=== PATIENT | male | born 1970 | race Caucasian/White ===

== ENCOUNTER 2018-02-10 02:17 | Inpatient (IN) | payer OTHER ==
[2018-02-10] MEDS ORDERED: HEPARIN SODIUM,PORCINE 5,000 UNIT/ML 1 ML VIAL IV STA (02:30)
[2018-02-10 02:31] LABS: Basophils # (A) 0.1 k/uL (0-0.2); Basophils % (A) 1 %; Eosinophils # (A) 0.3 k/uL (0-0.7); Eosinophils % (A) 2 %; HCT 38.6 % (39.0-53.0); HGB 12.5 gm/dL (13.0-17.5); Lymphocytes # (A) 4.8 k/uL (1.0-4.8); Lymphocytes % (A) 30 %; MCH 28.8 pg (25.0-35.0); MCHC 32.3 g/dL (31.0-37.0); MCV 89.2 fL (80.0-100.0); Mean Platelet Volume 7.9; Monocytes # (A) 1.2 k/uL (0-1.0); Monocytes % (A) 8 %; Neutrophils # (A) 9.4 k/uL (1.3-7.7); Neutrophils % (A) 59 %; Platelet Count 280 k/uL (150-450); RBC 4.33 m/uL (4.30-5.90); RDW 14.2 % (11.5-15.5)
[2018-02-10] MEDS ORDERED: SODIUM CHLORIDE 0.9% 1,000 ML IV ONE (02:32)
[2018-02-10] MEDS ORDERED: MORPHINE SULFATE 2 MG/ML SYRINGE IVP STA (02:32)
[2018-02-10 02:34] LABS: Glucose,Whole Blood 172 mg/dL (75-99)
--- NOTE | 2018-02-10 02:34 | XR ---
EXAMINATION TYPE: XR chest 1V portable DATE OF EXAM: 02/10/2018 COMPARISON: NONE HISTORY: Heart attack chest pain TECHNIQUE: Single frontal view of the chest is obtained. FINDINGS: There is some coarse interstitial density at the left lung base. There is no gross heart f ailure. There are chest leads. Mediastinum is normal. There is slight blunting of left costophrenic a ngle. IMPRESSION: There is mild pleural reaction and atelectasis at the left lung base. No gross heart akshat lure.
--- NOTE | 2018-02-10 02:36 | ED ---
Chest Pain HPI - General Stated Complaint: Chest Pain Time Seen by Provider: 02/10/18 02:22 - History of Present Illness Initial Comments: ORIF 7 years old male, brought in by EMS presented with a chest pain about on a half ago he threw up multiple times she is quite diaphoretic having a shortness of breath he had some alcohol on today he is camping in the area has no history of heart disease in the past denies any hypertension or diabetes history as well EKG was transferred by the EMS crew through as EKG was reviewed, EKG is consistent with a STEMI in inferior and lateral leads age he was repeated in the ER it confirms the infiltrate in the lateral leads STEMI he is short-winded - Related Data Allergies Allergy/AdvReac Type Severity Reaction Status Date / Time tetracycline Allergy Rash/Hives Verified 02/10/18 02:28 Review of Systems ROS Statement: Those systems with pertinent positive or pertinent negative responses have been documented in the HPI. ROS Other: All systems not noted in ROS Statement are negative. EKG Findings - EKG Comments: EKG Findings:: EKG is a sinus tachycardia ventricular rate is 107 NE interval is 132 QRS duration is 68 QT/QTC 312/416 review of this EKG reveals some ST elevation in lead 1 and lead to and aVL also noticed ST elevation in lead V4 V5 and V6 General Exam - General Exam Comments Initial Comments: General: The patient is awake and alert, in severe distress him a Skin: Skin is warm and dry and no rashes or lesions are noted. Eye: Pupils are equal, round and reactive to light, extra-ocular movements are intact; there is normal conjunctiva bilaterally. Ears, nose, mouth and throat: There are moist mucous membranes and no oral lesions. Neck: The neck is supple, there is no tenderness or JVD. Cardiovascular: There is a regular rate and rhythm. No murmur, rub or gallop is appreciated. Respiratory: To auscultation bilateral, Gastrointestinal: Soft, non-distended, non-tender abdomen without masses or organomegaly noted. There is no rebound or guarding present. Bowel sounds are unremarkable. Back: There is no tenderness to palpation in the midline. There is no obvious deformity. Musculoskeletal: Normal ROM, no tenderness, There is no pedal edema. There is no calf tenderness or swelling. No cords were appreciated. Neurological: CN II-XII intact, Cranial nerves III through XII are intact. There are no obvious motor or sensory deficits. Coordination appears grossly intact. Speech is normal. Psychiatric: Cooperative, appropriate mood & affect, normal judgment. Course Vital Signs 02/10/18 02/10/18 02/10/18 02:22 02:35 02:41 Temperature 97.0 F L 97.2 F L Pulse Rate 113 H 107 H 100 Respiratory 20 22 22 Rate Blood Pressure 88/58 119/69 107/66 O2 Sat by Pulse 100 95 95 Oximetry Critical Care Time Total Critical Care Time: 30 Critical Care Time: Patient's EKG was reviewed prior to his arrival EKG was consistent with a STEMI spoke with the gamer application architect manager he recommended we speak with the Dr. Duong Watters was giving a heads-up code STEMI was activated Butadiene Compressor Operator was activated patient had down fluids as well as IV heparin he did this he did drop his blood pressure to 80 systolic the spell we held back the morphine and nitro at this point patient left the ER in a stable condition now for the Butadiene Compressor Operator patient be admitted to Dr. Vito martinez [facility] hospitalist group and obviously Dr. Weir can be a consult. Disposition Clinical Impression: STEMI (ST elevation myocardial infarction), Hypotension Disposition: ADMITTED IP TO THIS HOSP Condition: Good
[2018-02-10 02:42] LABS: ALT 32 U/L (21-72); AST 20 U/L (17-59); Albumin 4.2 g/dL (3.5-5.0); Alkaline Phosphatase 82 U/L (38-126); Anion Gap 14 mmol/L; Blood Urea Nitrogen 16 mg/dL (9-20); Calcium 9.7 mg/dL (8.4-10.2); Carbon Dioxide 24 mmol/L (22-30); Chloride 101 mmol/L (98-107); Glucose 188 mg/dL (74-99); Potassium 4.2 mmol/L (3.5-5.1); Sodium 139 mmol/L (137-145); Total Bilirubin 0.3 mg/dL (0.2-1.3); Total Protein 6.9 g/dL (6.3-8.2)
[2018-02-10] MEDS ORDERED: ONDANSETRON 4 MG/2 ML VIAL ONE (02:53)
[2018-02-10] MEDS ORDERED: LIDOCAINE 1% INJ 10MG/ML (20 ML MDV) ONE (02:53)
[2018-02-10] MEDS ORDERED: MIDAZOLAM 2 MG/2 ML VIAL ONE (02:53)
[2018-02-10] MEDS ORDERED: LIDOCAINE 1% INJ 10MG/ML (20 ML MDV) SQ ONE (02:58)
[2018-02-10] MEDS ORDERED: SODIUM CHLORIDE 0.9% 500 ML IV ONE (03:02)
[2018-02-10] MEDS ORDERED: IV FLUID CONTINUATION 200 ML IV ONE (03:02)
[2018-02-10] MEDS ORDERED: NOREPINEPHRIN 4 MG-0.9% NS PMX 4 MG/250 ML ML IV ONE (03:03)
[2018-02-10] MEDS ORDERED: NITROGLYCERIN SL TABS 0.4 MG TAB SUBLINGUAL PRN (03:04)
[2018-02-10] MEDS ORDERED: MORPHINE SULFATE 4 MG/ML SYRINGE ONE (03:21)
[2018-02-10] MEDS ORDERED: IOPAMIDOL-370 50ML BTL INJ ONE (03:22)
[2018-02-10] MEDS ORDERED: MORPHINE SULFATE 4 MG/ML SYRINGE IVP ONE (03:22)
[2018-02-10] MEDS ORDERED: IOPAMIDOL-370 125ML BTL INJ ONE (03:23)
[2018-02-10] MEDS ORDERED: HEPARIN SODIUM,PORCINE/D5W PMX 25,000 UNIT in DEXTROSE/WATER 1 500ML.BAG IV ONE (03:30)
[2018-02-10] MEDS ORDERED: RX INFO: IV CONTRAST WAS GIVEN 1 EACH MISC MISCELLANE PRN (03:33)
--- NOTE | 2018-02-10 03:44 | P.CRDCN ---
History of Present Illness Consult date: 02/10/18 Chief complaint: chest pain History of present illness: This is a 47-year-old gentleman with past medical history significant for dyslipidemia presented to the emergency room complaining of chest discomfort. The patient stated that he was in his usual state of health until about 3 days ago when he started experiencing chest discomfort as sharp kind of discomfort in the middle of the chest and he states clearly worse once he take a deep breath. The chest discomfort wasn't associated with shortness of breath as well as a sweating. I was informed from the emergency room that the patient does have an acute inferior ST elevation myocardial infarction on his EKG. Because of that he underwent an emergent heart catheterization but that revealed normal coronaries with normal aortic root angiographically and without any evidence of dissection and also with normal LV function without any clear- cut wall motion abnormalities on the LV gram. Reviewing the EKG after owusu did show sinus rhythm without clear-cut ST segment elevation consistent with STEMI. There was possibly an early repolarization. During the procedure the patient pressure dropped down significantly to about 60 mmHg and I had to start the patient on vasopressors. Because of the chest discomfort was pleuritic my concern was possible PE. The patient was not tachycardic and the oxygen saturation was within normal limits and was about 95%. Computed tomography scan of the chest with contrast is a scheduled and the patient is in process to have it done to rule out a PE. Also stat echocardiogram will be performed to rule out any pericarditis/pericardial effusion/tamponade. d-dimer was added to the previous blood work and we don't have the results at this point. Meanwhile I will continue supporting her blood pressure was vasopressors. In terms of past medical history the patient does have dyslipidemia. No history of smoking or alcohol abuse. No significant family history of premature CAD. His father does have diabetes. Past Medical History History of Any Multi-Drug Resistant Organisms: None Reported Past Surgical History: No Surgical Hx Reported Past Psychological History: No Psychological Hx Reported Smoking Status: Never smoker Past Alcohol Use History: Occasional Past Drug Use History: None Reported Medications and Allergies Allergies Allergy/AdvReac Type Severity Reaction Status Date / Time tetracycline Allergy Rash/Hives Verified 02/10/18 02:28 Physical Exam Vitals: Vital Signs Temp Pulse Resp BP Pulse Ox 02/10/18 02:41 97.2 F L 100 22 107/66 95 02/10/18 02:35 107 H 22 119/69 95 02/10/18 02:22 97.0 F L 113 H 20 88/58 100 Intake and Output 02/09/18 02/09/18 02/10/18 14:59 22:59 06:59 Intake Total 2 Balance 2 Intake: IV 2 Other: Weight 98.1 kg - Constitutional General appearance: mild distress - Respiratory Respiratory: bilateral: CTA - Cardiovascular Rhythm: regular Heart sounds: normal: S1, S2 Results 02/10/18 02:21 02/10/18 02:21 Cardiac Enzymes 02/10/18 02/10/18 Range/Units 02:21 02:21 AST 20 (17-59) U/L Troponin I <0.012 (0.000-0.034) ng/mL Coagulation 02/10/18 Range/Units 02:21 PT 10.0 (9.0-12.0) sec APTT 21.0 L (22.0-30.0) sec CBC 02/10/18 Range/Units 02:21 WBC 16.0 H (3.8-10.6) k/uL RBC 4.33 (4.30-5.90) m/uL Hgb 12.5 L (13.0-17.5) gm/dL Hct 38.6 L (39.0-53.0) % Plt Count 280 (150-450) k/uL Comprehensive Metabolic Panel 02/10/18 Range/Units 02:21 Sodium 139 (137-145) mmol/L Potassium 4.2 (3.5-5.1) mmol/L Chloride 101 (98-107) mmol/L Carbon Dioxide 24 (22-30) mmol/L BUN 16 (9-20) mg/dL Creatinine 1.10 (0.66-1.25) mg/dL Glucose 188 H (74-99) mg/dL Calcium 9.7 (8.4-10.2) mg/dL AST 20 (17-59) U/L ALT 32 (21-72) U/L Alkaline Phosphatase 82 (38-126) U/L Total Protein 6.9 (6.3-8.2) g/dL Albumin 4.2 (3.5-5.0) g/dL Current Medications Generic Name Dose Route Start Last Admin Trade Name Freq PRN Reason Stop Dose Admin Aspirin 325 mg 02/11/18 09:00 Aspirin PO DAILY KAYCEE Sodium Chloride 1,000 mls @ 100 mls/hr 02/10/18 03:15 Saline 0.9% IV .Q10H KAYCEE Sodium Chloride 1,000 mls @ 100 mls/hr 02/10/18 03:45 Saline 0.9% IV 02/10/18 09:46 .Q10H KAYCEE Miscellaneous Information 1 each 02/10/18 03:33 Rx Info: Iv Contrast Was Given MISCELLANE 02/12/18 03:33 DAILY PRN Per Protocol Nitroglycerin 0.4 mg 02/10/18 03:04 Nitrostat SUBLINGUAL Q5M PRN Chest Pain Intake and Output 02/09/18 02/09/18 02/10/18 14:59 22:59 06:59 Intake Total 2 Balance 2 Intake: IV 2 Other: Weight 98.1 kg Patient Weight 02/10/18 06:59 Weight 98.1 kg 02/10/18 02:21 02/10/18 02:21 Assessment and Plan Assessment: assessment #1 pleuritic chest discomfort. #2 hypotension require vasopressor #3 dyslipidemia Plan #1 the patient currently is on vasopressor We'll continue supporting the blood pressure. #2 he is in process of having CTA to rule out a PE. d-dimer was added to the previous blood work. #3 he is in process to have an echocardiogram was Doppler as well to assess for pericardial effusion/tamponade #4 heparin was already initiated. #5 further recommendation to follow the results of the computed tomography scan. Thank you for allowing us participate in his care and we will continue following up with the patient.
[2018-02-10] MEDS ORDERED: SODIUM CHLORIDE 0.9% 1,000 ML IV SCH (03:45)
--- NOTE | 2018-02-10 04:16 | CT ---
EXAMINATION TYPE: CT angio chest DATE OF EXAM: 02/10/2018 4:10 AM COMPARISON: NONE HISTORY: ESTEFANY, R/O pe CT DLP: 595 mGycm Automated exposure control for dose reduction was used. CONTRAST: CTA scan of the thorax is performed with IV Contrast, patient injected with 100 mL of Isovue 370, pul monary embolism protocol. There are 3-D post processed images.. FINDINGS: There is coarse subpleural interstitial density in the lungs. There is mild coalescent infiltrate at the posterior lung bases. There is moderate pericardial effusion. This measures up to 12 mm in thickn ess. Thoracic aorta appears normal. There is no evidence of aneurysm or dissection. I see no filling defec ts in the pulmonary arteries. There are numerous mediastinal lymph nodes that measure up to 1 cm. The re are no hilar masses. The bony thorax is intact. IMPRESSION: NO EVIDENCE OF PULMONARY EMBOLISM. MODERATE PERICARDIAL EFFUSION. PATCHY INFILTRATES AND ATELECTASIS AT THE LUNG BASES. THERE ARE PARATRACHEAL LYMPH NODES OF UNCERTAIN SIGNIFICANCE.
[2018-02-10 04:19] LABS: Glucose,Whole Blood 180 mg/dL (75-99)
[2018-02-10] MEDS ORDERED: ONDANSETRON 4 MG/2 ML VIAL IVP PRN (04:42)
[2018-02-10 04:47] VITALS: BMI 31.5
[2018-02-10] MEDS: SODIUM CHLORIDE 0.9% 1,000 ML IV SCH ×3 (04:58→21:54)
[2018-02-10 06:24] LABS: Creatine Kinase 49 U/L (55-170)
--- NOTE | 2018-02-10 06:31 | CC ---
CARDIAC CATHETERIZATION REPORT DATE OF SERVICE: February 10, 2018 PERFORMING PHYSICIAN: Dillon Watters MD, taproom attendant. PROCEDURE PERFORMED: 1. Selective right and left coronary angiogram. 2. Left heart catheterization. 3. Left ventriculography. 4. An aortic root angiogram. INDICATION: This is a pleasant 47-year-old gentleman who presented to the emergency room with chest discomfort and the EKG showed findings questionable for acute non acute ST-segment elevation FL. Because of that an emergent heart catheterization was advised. APPROACH: Right common femoral artery. COMPLICATION: None. LEVEL OF SEDATION: Moderate. Sedation length of 35 minutes. PROCEDURE DESCRIPTION: After obtaining an informed consent, the patient was brought to cardiac laborer plumbing. The right common femoral artery was cannulated using micropuncture technique, the micropuncture wire passed easily then I placed a 6-Faroese sheath in the right common femoral artery. After that, I did selective right and left coronary angiogram using JR4 and JL3.5 catheters. Left heart catheterization, left ventriculography, and aortic root angiogram were performed using a 6-Faroese pigtail catheter. The procedure was completed without any complication. CORONARY ANGIOGRAM: 1. The RCA is a large caliber vessel and it is a dominant vessel. It is angiographically normal. It bifurcates distally into PDA and PLV branches, both are angiographically normal. 2. The left main is angiographically normal. It bifurcates into the left circumflex, ramus intermedius, and left anterior descending artery. 3. The left circumflex is a large caliber vessel and is a nondominant vessel. The left circumflex itself is angiographically normal and in the midportion gives rise into a large OM branch which seems to be angiographically normal. 4. The ramus intermedius is angiographically normal. 5. The LAD: The LAD system is angiographically normal in the proximal, mid and distal portion. In the midportion gives rise into a large diagonal branch which seems to be angiographically normal. HEMODYNAMICS: The left ventricular end-diastolic pressure was 20 mmHg and no gradient was identified across the aortic valve. Left ventriculography was performed in the SINCLAIR projection and using a power injection and the left ventricular systolic function seems to be normal with EF about 50% without any clear-cut evidence of wall motion abnormalities consistent with ischemia. AORTIC ROOT ANGIOGRAM: The aortic root angiogram was performed in the TURKMEN projection and using a power injection and the aortic root appeared to be angiographically normal without any evidence of dissection. CONCLUSION: 1. Normal coronary angiogram. 2. Elevated left ventricular end-diastolic pressure. 3. Normal left ventricular systolic function. 4. Normal aortic root and normal thoracic aorta as well. POSTPROCEDURE MANAGEMENT: 1. Start the patient on heparin IV for possible PE. 2. Add D-dimer to the previous blood work from earlier today. 3. CT scan of the chest as well. 4. Blood pressure support using vasopressors. 5. STAT echocardiogram. 6. Follow up with the patient. MMODL / IJN: [id number] /
[2018-02-10 06:34] LABS: Creatine Kinase MB <0.2 ng/mL (0.0-2.4)
--- NOTE | 2018-02-10 06:58 | P.HPIM ---
History of Present Illness H&P Date: 02/10/18 Chief Complaint: chest pain and trouble breathing of one day duration 47-year-old male with history of hyperlipidemia he is at his baseline status of health he was camping today when all of a sudden felt sudden sharp chest pain he described it as sharp knifelike 10 out of 10 in severity disabling pain every time he tries take of breath or move has clear pleuritic characteristics pain was not resolving for which he decided to call EMS pain started around noontime on Sunday while patient was camping. He never experienced such pain before. This was associated with nausea and vomiting heart tracing and diaphoresis. Code STEMI was activated as initial EKG suggested some ST segment elevations patient had left heart cath done showed no significant coronary artery disease, no aortic root dilatation, and LV function within normal limits. Patient then received CT angiogram of the chest due to elevated d- dimer and persistent pleuritic chest pain however that was negative for acute PE. Patient then was admitted to the ICU post left heart catheter diagnosis of acute pericarditis and was started on colchicine and NSAIDs. Patient does recall recent upper respiratory infection where he had the prolonged whooping cough around once a month ago but he did not seek medical advice at that time. Patient otherwise denies any headache trouble with hearing changes in his vision he denies any abdominal pain changes in his bowel habits or urinary habits, patient denies any focal neurologic deficits denies any GI bleeding. He feels that he is at his baseline status of health and have no current concerns other than above Review of Systems Pertinent positives as noted in HPI. All other systems were reviewed and are negative Past Medical History Past Medical History: Hyperlipidemia History of Any Multi-Drug Resistant Organisms: None Reported Past Surgical History: No Surgical Hx Reported Past Anesthesia/Blood Transfusion Reactions: No Reported Reaction Past Psychological History: No Psychological Hx Reported Smoking Status: Never smoker Past Alcohol Use History: Occasional Past Drug Use History: None Reported - Past Family History Father Family Medical History: Diabetes Mellitus Medications and Allergies Allergies Allergy/AdvReac Type Severity Reaction Status Date / Time tetracycline Allergy Rash/Hives Verified 02/10/18 02:28 Physical Exam Vitals: Vital Signs Temp Pulse Resp BP Pulse Ox 02/10/18 05:18 16 100 02/10/18 05:00 91 20 119/72 99 02/10/18 04:50 88 18 116/76 99 02/10/18 04:40 91 15 124/91 98 02/10/18 04:03 18 100 02/10/18 02:41 97.2 F L 100 22 107/66 95 02/10/18 02:35 107 H 22 119/69 95 02/10/18 02:22 97.0 F L 113 H 20 88/58 100 Intake and Output 02/09/18 02/09/18 02/10/18 14:59 22:59 06:59 Intake Total 302 Output Total 0 Balance 302 Intake: IV 302 Sodium Chloride 0.9% 1, 100 000 ml @ 100 mls/hr IV . Q10H [facility] Rx#:[id number] Output: Urine 0 Other: Weight 94 kg Constitutional: Patient still experiencing a lot of pain, he cannot complete full sentences and he has to stop to catch his breath otherwise very cooperative Eyes: Anicteric sclerae, moist conjunctiva, no lid-lag Pupils equal round reactive to light ENMT: NC/AT Oropharynx clear, no erythema, or exudates Neck: Supple, FROM, no masses, or JVD No carotid bruits No thyromegaly Lungs: Clear to auscultation Clear to percussion Normal respiratory effort, no accessory muscle use Cardiovascular: Heart regular in rate and rhythm, No murmurs, gallops, or rubs No peripheral edema Abdominal: Soft Nontender, no guarding, rebound or rigidity Abdomen moving with respiration Normoactive bowel sounds No hepatomegaly, No splenomegaly No palpable mass No abdominal wall hernia noted Skin: Normal temperature, tone, texture, turgor No induration No subcutaneous nodules No rash, lesions No ulcers Extremities: No digital cyanosis No clubbing Pedal pulses intact and symmetrical Radial pulses intact and symmetrical No calf tenderness Psychiatric: Alert and oriented to person, place and time Appropriate affect fair judgment Neuro Muscles Strength 5/5 in all 4 extremities Sensation to light touch grossly present throughout Cranial nerves II-XII grossly intact No focal sensory deficits Lymphatics: no palpable cervical or supraclavicular , or inguinal lymph nodes Results CBC & Chem 7: 02/10/18 02:21 02/10/18 02:21 Labs: Abnormal Lab Results - Last 24 Hours (Table) 02/10/18 02/10/18 02/10/18 Range/Units 02:21 02:21 02:21 WBC 16.0 H (3.8-10.6) k/uL Hgb 12.5 L (13.0-17.5) gm/dL Hct 38.6 L (39.0-53.0) % Neutrophils # 9.4 H (1.3-7.7) k/uL Monocytes # 1.2 H (0-1.0) k/uL APTT 21.0 L (22.0-30.0) sec D-Dimer (<0.60) mg/L FEU Glucose 188 H (74-99) mg/dL POC Glucose (mg/dL) (75-99) mg/dL 02/10/18 02/10/18 02/10/18 Range/Units 02:21 02:21 04:18 WBC (3.8-10.6) k/uL Hgb (13.0-17.5) gm/dL Hct (39.0-53.0) % Neutrophils # (1.3-7.7) k/uL Monocytes # (0-1.0) k/uL APTT (22.0-30.0) sec D-Dimer 1.65 H (<0.60) mg/L FEU Glucose (74-99) mg/dL POC Glucose (mg/dL) 172 H 180 H (75-99) mg/dL Thrombosis Risk Factor Assmnt - Choose All That Apply Each Factor Represents 1 point: Acute AL Other Risk Factors: No Thrombosis Risk Factor Assessment Total Risk Factor Score: 1 Thrombosis Risk Factor Assessment Level: Low Risk Assessment and Plan Assessment: 47-year-old male with past medical history of hyperlipidemia. Patient admitted to the hospital with anticipated length of stay of more than 48 hours for diagnosis of acute pericarditis, currently under workup to rule out pericardial effusion. Patient initially presented to the ED with code STEMI however left heart cath revealed no significant coronary artery disease. CTA of the chest was performed due to patient reporting pleuritic chest pain and trouble breathing result was negative for acute PE. Currently patient is admitted to the ICU for further monitoring Plan: Acute pericarditis Patient started on colchicine and ibuprofen Monitoring in the ICU Pending 2-D echocardiogram rule out pericardial effusion Cardiology consult Leukocytosis most likely reactive secondary to above Hyperglycemia Check A1c Mild anemia Consider outpatient follow-up and workup Continue to follow up H&H Obesity Patient counseled for lifestyle modification and weight loss DVT prophylaxis Heparin subcu 3 times a day Surrogate decision-maker: Patient Vic CODE STATUS: Code Discussed with: Patient, ER, *RN Anticipated discharge: 48-[address]: Home A total of 55 minutes was spent on the care of this complex patient more than 50 % of the time was spent in counseling and care coordination.
[2018-02-10] MEDS: PANTOPRAZOLE 40 MG TABLET PO SCH (09:18)
[2018-02-10] MEDS: COLCHICINE 0.6 MG EACH PO SCH ×2 (09:18→20:21)
[2018-02-10] MEDS: IBUPROFEN 600 MG TAB PO SCH ×3 (09:32→21:53)
[2018-02-10 10:00] LABS: Creatine Kinase 36 U/L (55-170)
[2018-02-10 10:14] LABS: Creatine Kinase MB <0.2 ng/mL (0.0-2.4); Troponin I 0.012 ng/mL (0.000-0.034)
[2018-02-10 12:23] LABS: Glucose,Whole Blood 147 mg/dL (75-99)
[2018-02-10] MEDS: INSULIN ASPART 100 UNIT/ML 1 ML 10 ML VIAL SQ SCH ×3 (12:38→20:22)
--- NOTE | 2018-02-10 12:53 | P.CNPUL ---
History of Present Illness Consult date: 02/10/18 Requesting physician: Dimitri Sargent Reason for consult: dyspnea Chief complaint: Chest pain and trouble breathing History of present illness: This is a 47-year-old white male with history of hypercholesterolemia, presented yesterday to the ER with 1 day history of sharp chest pain pleuritic in nature, described as stabbing pain upon inspiration. Pain was not localized was basically all over the chest. Patient was also complaining of shortness of breath, pain was related to movement, and clearly pleuritic in nature. Upon presentation to the ER, his EKG was suggestive of acute ST elevation inferior myocardial infarction hence the patient was taken directly to the cardiac catheterization lab, and he was found to have in normal cardiac catheterization with normal coronaries. Hence it was felt that the patient's pain may be secondary to pericarditis, and the findings on the EKG could be seen and pericarditis. Patient was also noted to have a moderate pericardial effusion without tamponade, placed on Motrin and on colchicine by cardiology, CT angiogram of the chest failed to show any significant abnormality, no evidence of thromboembolic disease. Apparently at one point the patient was hypotensive requiring norepinephrine, but this was discontinued shortly after the cardiac catheterization was done. Patient continues to have pleuritic pain, some shortness of breath, echocardiogram failed to show significant temponade. Patient remains presently in the ICU, on Motrin and colchicine, slightly better compared to how he felt upon presentation. CBC showed a slight leukocytosis with WBC count of 16.0, d-dimer was 1.65 basic metabolic profile and renal profile were noted to be relatively normal. Presently the patient denies any headaches, no blurred vision, no dizziness, he has pulmonary and cardiac symptoms as noted above, denies any nausea vomiting abdominal pain melena or hematemesis no dysuria and no frequency no urgency. Review of Systems 14 point review of systems were obtained, please refer to pertinent positives in HPI otherwise remaining systems are negative Past Medical History Past Medical History: Hyperlipidemia History of Any Multi-Drug Resistant Organisms: None Reported Past Surgical History: No Surgical Hx Reported Past Anesthesia/Blood Transfusion Reactions: No Reported Reaction Past Psychological History: No Psychological Hx Reported Smoking Status: Never smoker Past Alcohol Use History: Occasional Past Drug Use History: None Reported - Past Family History Father Family Medical History: Diabetes Mellitus Medications and Allergies Allergies Allergy/AdvReac Type Severity Reaction Status Date / Time tetracycline Allergy Rash/Hives Verified 02/10/18 02:28 Physical Exam Vitals: Vital Signs Temp Pulse Resp BP Pulse Ox 02/10/18 12:00 111 H 20 144/67 98 02/10/18 11:37 22 02/10/18 11:30 114 H 20 106/83 98 02/10/18 11:00 104 H 22 141/82 98 02/10/18 10:30 103 H 23 171/92 98 02/10/18 10:00 115 H 20 146/95 97 02/10/18 09:30 108 H 20 139/87 94 L 02/10/18 09:00 104 H 20 149/94 97 02/10/18 08:30 100 20 140/92 98 02/10/18 08:00 98.5 F 101 H 20 144/83 96 02/10/18 07:30 94 20 144/86 97 02/10/18 07:00 98 20 142/91 98 02/10/18 06:30 93 23 129/84 99 02/10/18 06:00 92 23 136/87 99 02/10/18 05:30 89 20 144/79 99 02/10/18 05:18 16 100 02/10/18 05:00 91 20 119/72 99 02/10/18 04:50 88 18 116/76 99 02/10/18 04:40 91 15 124/91 98 02/10/18 04:03 18 100 02/10/18 02:41 97.2 F L 100 22 107/66 95 02/10/18 02:35 107 H 22 119/69 95 02/10/18 02:22 97.0 F L 113 H 20 88/58 100 Intake and Output 02/09/18 02/10/18 02/10/18 22:59 06:59 14:59 Intake Total 402 700 Output Total 0 650 Balance 402 50 Intake: IV 402 600 Sodium Chloride 0.9% 1, 200 600 000 ml @ 100 mls/hr IV . Q10H [facility] Rx#:[id number] Oral 100 Output: Urine 0 650 Other: Voiding Method Urinal # Voids 1 Weight 94 kg Physical Exam: Revealed a 47-year-old white male complaining of pain with any movement and with taking a deep breath Head: Atraumatic normocephalic. HEENT:[Neck is supple.] [No neck masses.] [No thyromegaly.] [No JVD.] PERRLA, EOMI, throat is clear, moist mucous membranes. Chest: [Clear throughout, no crackles, no rhonchi, no wheezes.] Cardiac Exam: [Normal S1 and S2, no S3 gallop, no murmur.] Abdomen: [Soft, nontender, no megaly, no rebound, no guarding, normal bowel sounds.] Extremities: [No clubbing, no edema, no cyanosis.] Neurological Exam: [No focal neurologic deficit. Psychiatric: Normal mood, affect and mental status examination. Lymphatics: No lymphadenopathy. Skin: No urination, no rashes, no ulcerations] Results - Laboratory Findings CBC and BMP: 02/10/18 02:21 02/10/18 02:21 PT/INR, D-dimer PT 10.0 sec (9.0-12.0) 02/10/18 02:21 INR 1.0 (<1.2) 02/10/18 02:21 D-Dimer 1.65 mg/L FEU (<0.60) H 02/10/18 02:21 Abnormal lab findings: Abnormal Labs 02/10/18 02/10/18 02/10/18 02:21 02:21 02:21 WBC 16.0 H Hgb 12.5 L Hct 38.6 L Neutrophils # 9.4 H Monocytes # 1.2 H APTT 21.0 L D-Dimer Glucose 188 H POC Glucose (mg/dL) Total Creatine Kinase 02/10/18 02/10/18 02/10/18 02:21 02:21 02:21 WBC Hgb Hct Neutrophils # Monocytes # APTT D-Dimer 1.65 H Glucose POC Glucose (mg/dL) 172 H Total Creatine Kinase 49 L 02/10/18 02/10/18 02/10/18 04:18 09:11 12:21 WBC Hgb Hct Neutrophils # Monocytes # APTT D-Dimer Glucose POC Glucose (mg/dL) 180 H 147 H Total Creatine Kinase 36 L - Diagnostic Findings CT scan - chest: image reviewed (As noted in HPI. No significant abnormality was appreciated.) Assessment and Plan Assessment: Impression: 1 acute pericarditis 2 pericardial effusion 3 hypercholesterolemia and hyperglycemia Recommendation: Considering the patient had a relatively normal cardiac catheterization, normal CT angiogram of the chest except for pericardial effusion, suggest we continue to monitor the patient in the ICU, continue colchicine and Motrin, repeat echocardiogram in the next 24 hours for follow-up on his moderate pericardial effusion, and we'll continue to follow. Time with Patient: Greater than 30
--- NOTE | 2018-02-10 15:02 | P.PN ---
Subjective Progress Note Date: 02/10/18 Principal diagnosis: Acute pericarditis This is a pleasant 47-year-old gentleman with a past medical history significant for dyslipidemia presented to the emergency room complaining of chest discomfort. I was called to perform an emergent heart catheterization for acute inferior ST patient myocardial infarction. The patient underwent a heart catheterization which revealed normal coronaries. Subsequently he underwent a computed tomography scan of the chest which showed no evidence of pulmonary embolism but moderate pericardial effusion was confirmed by an echocardiogram. The echo showed moderate pericardial effusion which was circumferential without any evidence of tamponade physiology. Initially the patient was hypotensive requiring vasopressors was subsequently his blood pressure has improved and he is not on any vasopressors. He is slightly tachycardic with a heart rate around 100-110 beats per minute. He stated that the chest discomfort has improved significantly. The patient was started last night on colchicine as well as ibuprofen. He stated that overall he is feeling better. Objective - Vital Signs Vital signs: Vital Signs Temp 98.5 F 02/10/18 08:00 Pulse 108 H 02/10/18 13:00 Resp 20 02/10/18 13:00 BP 139/77 02/10/18 13:00 Pulse Ox 95 02/10/18 13:00 Intake & Output 02/09/18 02/10/18 02/10/18 18:59 06:59 18:59 Intake Total 402 800 Output Total 0 650 Balance 402 150 Weight 94 kg Intake: IV 402 700 Sodium Chloride 0.9% 1, 200 700 000 ml @ 100 mls/hr IV . Q10H [facility] Rx#:[id number] Oral 100 Output: Urine 0 650 Other: Voiding Method Urinal # Voids 1 - Constitutional General appearance: Present: no acute distress - Respiratory Respiratory: bilateral: CTA - Cardiovascular Rhythm: regular Heart sounds: normal: S1, S2 - Labs CBC & Chem 7: 02/10/18 02:21 02/10/18 02:21 Labs: Abnormal Lab Results - Last 24 Hours (Table) 02/10/18 02/10/18 02/10/18 Range/Units 02:21 02:21 02:21 WBC 16.0 H (3.8-10.6) k/uL Hgb 12.5 L (13.0-17.5) gm/dL Hct 38.6 L (39.0-53.0) % Neutrophils # 9.4 H (1.3-7.7) k/uL Monocytes # 1.2 H (0-1.0) k/uL APTT 21.0 L (22.0-30.0) sec D-Dimer (<0.60) mg/L FEU Glucose 188 H (74-99) mg/dL POC Glucose (mg/dL) (75-99) mg/dL Total Creatine Kinase (55-170) U/L 02/10/18 02/10/18 02/10/18 Range/Units 02:21 02:21 02:21 WBC (3.8-10.6) k/uL Hgb (13.0-17.5) gm/dL Hct (39.0-53.0) % Neutrophils # (1.3-7.7) k/uL Monocytes # (0-1.0) k/uL APTT (22.0-30.0) sec D-Dimer 1.65 H (<0.60) mg/L FEU Glucose (74-99) mg/dL POC Glucose (mg/dL) 172 H (75-99) mg/dL Total Creatine Kinase 49 L (55-170) U/L 02/10/18 02/10/18 02/10/18 Range/Units 04:18 09:11 12:21 WBC (3.8-10.6) k/uL Hgb (13.0-17.5) gm/dL Hct (39.0-53.0) % Neutrophils # (1.3-7.7) k/uL Monocytes # (0-1.0) k/uL APTT (22.0-30.0) sec D-Dimer (<0.60) mg/L FEU Glucose (74-99) mg/dL POC Glucose (mg/dL) 180 H 147 H (75-99) mg/dL Total Creatine Kinase 36 L (55-170) U/L Assessment and Plan Assessment: Assessment #1 acute pericarditis #2 hypotension which was improved. Plan #1 continue the current medical treatment was colchicine as well as ibuprofen #2 repeat the echocardiogram in 48 hours to assess for improvement in the pericardial effusion #3 follow-up with the patient. Thank you for allowing us participate in his care
--- NOTE | 2018-02-10 15:17 | P.PN ---
Progress Note - Text Progress Note Date: 02/10/18 Hospitalist Interval Note Patient seen and examined at bedside. Not feeling any improvement since yesterday. No nausea or vomiting. No diarrhea or constipation. Still a significant chest pain worse with deep inspiration and moving, short of breath, feeling anxious. Vital signs reviewed General: non toxic, moderate distress], appears at stated age, diaphoretic Derm: warm, dry Head: atraumatic, normocephalic, symmetric Eyes: EOMI, no lid lag, anicteric sclera Mouth: no lip lesion, mucus membranes moist Cardiovascular: [S1S2 tach faint, no murmur, positive posterior tibial pulse bilateral, Lungs: decreased bs b/l bases, no rhonchi, no rales , no accessory muscle use Abdominal: soft, nontender to palpation, no guarding, no appreciable organomegaly Ext: no gross muscle atrophy, no edema, no contractures Neuro: CN II-XI grossly intact, no focal neuro deficits Psych: Alert, oriented, appropriate affect Assessment/Plan: Acute pericarditis - colchicine, ibuprofen - echo - cardio recs - repeat echo in 48 hours - negative cath Leukocytosis, - likely reactive and secondary to above Hyperglycemia - hemoglobin A1C pending - sliding scale insulin Anemia - follow H and H - outpatient follow-up and evaluation Obesity - life style modifications elevated d-dimer - CTAno pulmonary embolism - moderate pericardial effusion This is an update note for patient , for full note on 02/10 see H and PO by Dr. Sargent. There is no charge associated with this note.
[2018-02-10 15:26] LABS: Creatine Kinase 32 U/L (55-170)
[2018-02-10 15:36] LABS: Creatine Kinase MB <0.2 ng/mL (0.0-2.4); Troponin I <0.012 ng/mL (0.000-0.034)
[2018-02-10] MEDS: HEPARIN SODIUM,PORCINE 5,000 UNIT/ML 1 ML VIAL SQ SCH (16:40)
[2018-02-10] MEDS: ALPRAZolam 0.25 MG TAB PO PRN ×2 (17:04→21:52)
[2018-02-10] MEDS ORDERED: METOPROLOL TARTRATE 12.5 MG TAB PO PRN (17:09)
[2018-02-10 17:38] LABS: Glucose,Whole Blood 148 mg/dL (75-99)
[2018-02-10 20:03] LABS: Glucose,Whole Blood 142 mg/dL (75-99)
--- NOTE | 2018-02-10 20:41 | ECHOF ---
Referral Reason:dyspnea, chest pain MEASUREMENTS -------- HEIGHT: 172.7 cm WEIGHT: 0.0 kg BP: IVSd: 1.4 cm (0.6 - 1.1) LVIDd: 3.8 cm (3.9 - 5.3) LVPWd: 1.5 cm (0.6 - 1.1) IVSs: 2.0 cm LVIDs: 2.2 cm LVPWs: 2.1 cm Ao Diam: 2.8 cm (2.0 - 3.7) AV Cusp: 1.8 cm (1.5 - 2.6) LA Diam: 2.3 cm (2.7 - 3.8) MV EXCURSION: 9.371 mm (> 18.000) MV EF SLOPE: 71 mm/s (70 - 150) EPSS: 1.2 cm MV E Haider: 0.49 m/s MV DecT: 93 ms MV A Haider: 0.60 m/s MV E/A Ratio: 0.82 RAP: 5.00 mmHg RVSP: 10.17 mmHg FINDINGS -------- Resting tachycardia (HR>100bpm). This was a technically difficult study with suboptimal views. The left ventricular size is normal. There is moderate concentric left ventricular hypertrophy. O verall left ventricular systolic function is normal with, an EF between 55 - 60 %. The right ventricle is normal in size and function. The left atrium is normal in size. The right atrium is normal in size. The aortic valve is trileaflet, and appears structurally normal. No aortic stenosis or regurgitation. The mitral valve leaflets are mildly thickened. There is trace mitral regurgitation. Trace tricuspid regurgitation present. The right ventricular systolic pressure, as measured by Dopp ler, is 10.17mmHg. Pulmonic valve appears structurally normal. The aortic root size is normal. Moderate global pericardial effusion . No tamponade seen. CONCLUSIONS -------- 1. Resting tachycardia (HR>100bpm). 2. This was a technically difficult study with suboptimal views. 3. The left ventricular size is normal. 4. There is moderate concentric left ventricular hypertrophy. 5. Overall left ventricular systolic function is normal with, an EF between 55 - 60 %. 6. The right ventricle is normal in size and function. 7. The left atrium is normal in size. 8. The right atrium is normal in size. 9. The aortic valve is trileaflet, and appears structurally normal. No aortic stenosis or regurgitati on. 10. The mitral valve leaflets are mildly thickened. 11. There is trace mitral regurgitation. 12. Trace tricuspid regurgitation present. 13. The right ventricular systolic pressure, as measured by Doppler, is 10.17mmHg. 14. Pulmonic valve appears structurally normal. 15. The aortic root size is normal. 16. Moderate global pericardial effusion. No tamponade seen [employer]PORATE LAWYER: Aracelis Garcia RDCS
[2018-02-11] MEDS: HEPARIN SODIUM,PORCINE 5,000 UNIT/ML 1 ML VIAL SQ SCH ×2 (00:26→08:58)
[2018-02-11] MEDS: ALPRAZolam 0.25 MG TAB PO PRN (04:31)
[2018-02-11 05:00] LABS: Basophils % (A) 0 %; Eosinophils # (A) 0.2 k/uL (0-0.7); Eosinophils % (A) 2 %; HCT 31.7 % (39.0-53.0); Hypochromasia Slight; Lymphocytes # (A) 1.8 k/uL (1.0-4.8); Lymphocytes % (A) 21 %; MCH 29.1 pg (25.0-35.0); MCHC 31.4 g/dL (31.0-37.0); MCV 92.5 fL (80.0-100.0); Mean Platelet Volume 7.4; Monocytes # (A) 0.6 k/uL (0-1.0); Monocytes % (A) 8 %; Neutrophils # (A) 5.7 k/uL (1.3-7.7); Neutrophils % (A) 68 %; Platelet Count 199 k/uL (150-450); RBC 3.42 m/uL (4.30-5.90); RDW 14.5 % (11.5-15.5); WBC 8.5 k/uL (3.8-10.6)
[2018-02-11 05:17] LABS: Anion Gap 9 mmol/L; Blood Urea Nitrogen 13 mg/dL (9-20); Carbon Dioxide 23 mmol/L (22-30); Chloride 105 mmol/L (98-107); Cholesterol 122 mg/dL (<200); Glucose 104 mg/dL (74-99); HDL Cholesterol 34 mg/dL (40-60); LDL Cholesterol,Calculated 56 mg/dL (0-99); Magnesium 1.8 mg/dL (1.6-2.3); Potassium 4.1 mmol/L (3.5-5.1); Sodium 137 mmol/L (137-145); Triglycerides 160 mg/dL (<150)
[2018-02-11 05:22] LABS: HGB 9.9 gm/dL (13.0-17.5)
[2018-02-11] MEDS ORDERED: Magnesium Replacement Protocol 1 EACH MISC MISCELLANE PRN (05:34)
[2018-02-11] MEDS: IBUPROFEN 600 MG TAB PO SCH (06:10)
[2018-02-11] MEDS: MAGNESIUM SULFATE-D5W PMX 1 GM in DEXTROSE/WATER 1 100ML.BAG IVPB SCH ×2 (06:11→07:57)
[2018-02-11 06:44] LABS: Appearance,Urine Clear (Clear); Bilirubin,Urine Negative (Negative); Blood,Urine Negative (Negative); Color,Urine Yellow; Glucose,Urine (UA) Negative (Negative); Ketones,Urine Negative (Negative); Leukocyte Esterase,Urine Negative (Negative); Mucus,Urine Occasional /hpf; Nitrite,Urine Negative (Negative); PH, Urine 5.5 (5.0-8.0); Protein,Urine 1+ (Negative); RBC,Urine 1 /hpf (0-5); Specific Gravity,Urine 1.024 (1.001-1.035); Urobilinogen,Urine <2.0 mg/dL (<2.0); WBC,Urine 2 /hpf (0-5)
[2018-02-11 06:46] LABS: Glucose,Whole Blood 163 mg/dL (75-99)
[2018-02-11 06:59] LABS: Amphetamine Screen,Urine Not Detected (NotDetected); Barbiturate Screen,Urine Not Detected (NotDetected); Benzodiazepines Screen,Urine Detected (NotDetected); Cocaine Screen,Urine Not Detected (NotDetected); Methadone Screen, Urine Not Detected (NotDetected); Opiate Screen,Urine Not Detected (NotDetected); Oxycodone Screen, Urine Not Detected (NotDetected); Phencyclidine Screen,Urine Not Detected (NotDetected); Tricyclic Antidepressant,Urine Not Detected (NotDetected); Urn Cannabinoid Scrn Not Detected (NotDetected)
[2018-02-11] MEDS: COLCHICINE 0.6 MG EACH PO SCH (08:58)
[2018-02-11] MEDS: PANTOPRAZOLE 40 MG TABLET PO SCH (08:58)
[2018-02-11] MEDS: INSULIN ASPART 100 UNIT/ML 1 ML 10 ML VIAL SQ SCH (08:58)
[2018-02-11] MEDS ORDERED: ASPIRIN 325 MG TAB PO SCH (09:00)
--- NOTE | 2018-02-11 09:51 | P.PN ---
Subjective Progress Note Date: 02/11/18 Principal diagnosis: Acute pericarditis, pericardial effusion This is a 47-year-old white male with history of hypercholesterolemia, presented yesterday to the ER with 1 day history of sharp chest pain pleuritic in nature, described as stabbing pain upon inspiration. Pain was not localized was basically all over the chest. Patient was also complaining of shortness of breath, pain was related to movement, and clearly pleuritic in nature. Upon presentation to the ER, his EKG was suggestive of acute ST elevation inferior myocardial infarction hence the patient was taken directly to the cardiac catheterization lab, and he was found to have in normal cardiac catheterization with normal coronaries. Hence it was felt that the patient's pain may be secondary to pericarditis, and the findings on the EKG could be seen and pericarditis. Patient was also noted to have a moderate pericardial effusion without tamponade, placed on Motrin and on colchicine by cardiology, CT angiogram of the chest failed to show any significant abnormality, no evidence of thromboembolic disease. Apparently at one point the patient was hypotensive requiring norepinephrine, but this was discontinued shortly after the cardiac catheterization was done. Patient continues to have pleuritic pain, some shortness of breath, echocardiogram failed to show significant temponade. Patient remains presently in the ICU, on Motrin and colchicine, slightly better compared to how he felt upon presentation. CBC showed a slight leukocytosis with WBC count of 16.0, d-dimer was 1.65 basic metabolic profile and renal profile were noted to be relatively normal. Presently the patient denies any headaches, no blurred vision, no dizziness, he has pulmonary and cardiac symptoms as noted above, denies any nausea vomiting abdominal pain melena or hematemesis no dysuria and no frequency no urgency. On 02/11/2018 patient seen in follow-up in intensive care unit. He is sitting up in the chair, in no acute distress. Still has some pleuritic chest pain, however it is much improved, and is worse with episodes of deep breathing and coughing. Patient is on Motrin and colchicine. Pulse ox on 2 L per nasal cannula is 95%, hemodynamically stable, afebrile, tachycardic with a heart rate of 108 BPM. Sinus tachycardia on the monitor. 0.9 normal saline at a rate of 100 ML per hour. No other complaints, no acute events overnight, today's lab work has been reviewed. White count has improved, down to 8.5, hemoglobin is 9.9, electrolytes and renal profile are all within normal limits. Objective - Vital Signs Vital signs: Vital Signs Temp 98.2 F 02/11/18 00:00 Pulse 108 H 02/11/18 07:00 Resp 24 02/11/18 07:00 BP 130/79 02/11/18 07:00 Pulse Ox 95 02/11/18 07:00 Intake & Output 02/10/18 02/11/18 02/11/18 18:59 06:59 18:59 Intake Total 1300 1300 Output Total 925 700 Balance 375 600 Weight 94.9 kg Intake: IV 1200 1300 Magnesium Sulfate-D5w Pmx 100 1 gm In Dextrose/Water 1 100ml.bag @ 100 mls/hr IVPB Q1H [facility] Rx#: [id number] Sodium Chloride 0.9% 1, 1200 1200 000 ml @ 100 mls/hr IV . Q10H [facility] Rx#:[id number] Oral 100 Output: Urine 925 700 Other: Voiding Method Urinal Urinal # Voids 1 1 - Exam Physical Exam: Revealed a 47-year-old white male complaining of pain with any movement and with taking a deep breath Head: Atraumatic normocephalic. HEENT:[Neck is supple.] [No neck masses.] [No thyromegaly.] [No JVD.] PERRLA, EOMI, throat is clear, moist mucous membranes. Chest: [Clear throughout, no crackles, no rhonchi, no wheezes. Breath sounds are decreased at bilateral bases] Cardiac Exam: [Normal S1 and S2, no S3 gallop, no murmur.] Abdomen: [Soft, nontender, no megaly, no rebound, no guarding, normal bowel sounds.] Extremities: [No clubbing, no edema, no cyanosis.] Neurological Exam: [No focal neurologic deficit. Psychiatric: Normal mood, affect and mental status examination. Lymphatics: No lymphadenopathy. Skin: No urination, no rashes, no ulcerations] - Labs CBC & Chem 7: 02/11/18 03:54 02/11/18 03:54 Labs: Abnormal Lab Results - Last 24 Hours (Table) 02/10/18 02/10/18 02/10/18 Range/Units 09:11 12:21 14:34 RBC (4.30-5.90) m/uL Hgb (13.0-17.5) gm/dL Hct (39.0-53.0) % Glucose (74-99) mg/dL POC Glucose (mg/dL) 147 H (75-99) mg/dL Calcium (8.4-10.2) mg/dL Total Creatine Kinase 36 L 32 L (55-170) U/L Triglycerides (<150) mg/dL HDL Cholesterol (40-60) mg/dL Urine Protein (Negative) Urine Mucus (None) /hpf U Benzodiazepines Scrn (NotDetected) 02/10/18 02/10/18 02/11/18 Range/Units 17:35 20:01 03:54 RBC (4.30-5.90) m/uL Hgb (13.0-17.5) gm/dL Hct (39.0-53.0) % Glucose 104 H (74-99) mg/dL POC Glucose (mg/dL) 148 H 142 H (75-99) mg/dL Calcium 8.0 L (8.4-10.2) mg/dL Total Creatine Kinase (55-170) U/L Triglycerides 160 H (<150) mg/dL HDL Cholesterol 34 L (40-60) mg/dL Urine Protein (Negative) Urine Mucus (None) /hpf U Benzodiazepines Scrn (NotDetected) 02/11/18 02/11/18 02/11/18 Range/Units 03:54 06:00 06:44 RBC 3.42 L (4.30-5.90) m/uL Hgb 9.9 L D (13.0-17.5) gm/dL Hct 31.7 L (39.0-53.0) % Glucose (74-99) mg/dL POC Glucose (mg/dL) 163 H (75-99) mg/dL Calcium (8.4-10.2) mg/dL Total Creatine Kinase (55-170) U/L Triglycerides (<150) mg/dL HDL Cholesterol (40-60) mg/dL Urine Protein 1+ H (Negative) Urine Mucus Occasional H (None) /hpf U Benzodiazepines Scrn Detected H (NotDetected) Assessment and Plan Plan: Assessment: 1 acute pericarditis 2 pericardial effusion 3 hypercholesterolemia and hyperglycemia Recommendation: Patient has been stable, chest pain has subsided, hemodynamically stable, no acute events overnight, continue Motrin and colchicine. Patient can go out of intensive care today to selective care unit. he is a [place] national, and transfer arrangement is in progress transfer to hospital in [place] I performed a history & physical examination of the patient and discussed their management with my nurse practitioner, Sandra Burk. I reviewed the nurse practitioner's note and agree with the documented findings and plan of care. Lung sounds are clear, diminished at the bases. The findings and the impression was discussed with the patient. I attest to the documentation by the nurse practitioner. Time with Patient: Less than 30
[2018-02-11 10:03] LABS: Hemoglobin A1C 5.6 % (4.0-6.0)
[2018-02-11 10:48] VITALS: PULSE 110; TEMP 97.8
[2018-02-11] MEDS: SODIUM CHLORIDE 0.9% 1,000 ML IV SCH (10:51)
[2018-02-11 12:05] VITALS: BP 138/78; RESP 25
--- NOTE | 2018-02-11 13:08 | PN ---
PROGRESS NOTE This is a 47-year-old gentleman who was here camping and developed acute onset pleuritic chest pain. The initial EKG showed ST-segment elevation and he was taken to animal laboratory technician emergently for cardiac catheterization, which showed normal coronary arteries. Subsequently had a CT scan of the chest that ruled out pulmonary embolism, but he was found to have moderate pericardial effusion without any tamponade. He is treated with NSAIDs and colchicine with almost complete resolution of his pleuritic chest pain. At the time of my evaluation, he is pain free, hemodynamically stable and he is currently in the process of being transferred to [place]. PHYSICAL EXAMINATION: On exam, comfortable at rest. Heart rate is around 110 beats per minute. Blood pressure is 135/79, O2 sat is 93% on room air. There is no jugular venous distention. Chest exam reveals good air entry bilaterally. Heart exam reveals first and second heart sounds. No rub. No murmur. Abdomen is soft, nontender. Examination of the extremities did not reveal any edema. Peripheral pulses are felt. LABS: Labs show a hemoglobin of 9.9, platelet count is 199. Creatinine is 0.8. LDL cholesterol is 56. ASSESSMENT: Acute pericarditis with pericardial effusion. PLAN: Patient has made significant symptom improvement on NSAIDs and colchicine. He is stable to be transferred to [place]. The patient needs a repeat echocardiogram over the next 48 hours to re-evaluate the pericardial effusion. MMODL / IJN: [id number] /
--- NOTE | 2018-02-11 13:32 | P.DS ---
Providers Date of admission: 02/10/18 03:01 Expected date of discharge: 02/11/18 Attending physician: Dimitri Sargent MD Consults: 02/10/18 03:04 Consult Physician Stat Consulting Provider: Zahra Daily Consult Reason/Comments: STEMI Do you want consulting provider notified?: Yes Consult Physician Urgent Consulting Provider: Dillon Watters Consult Reason/Comments: stemi Do you want consulting provider notified?: Yes 02/10/18 05:12 Consult Physician Routine Consulting Provider: Zahra Daily Consult Reason/Comments: ICU Managment Do you want consulting provider notified?: Already Contacted Primary care physician: Stated None - Discharge Diagnosis(es) (1) Acute pericarditis Status: Acute (2) Pericardial effusion Status: Acute (3) Leukocytosis Status: Acute (4) Obesity Status: Acute Hospital Course: The patient is a 47-year-old male that presented with chest pain, but he was placed on observation to rule out ACS there was some concern for possible non-ST elevation CA, his initial EKG and subsequent cardiac enzymes were negative for any indigestion with acute ischemia, cardiology was consulted and the heart catheterization was performed which was negative for any coronary artery disease, on echocardiogram the patient was noted to have ejection fraction of 55-60%, with a moderate global pericardial effusion. The patient was diagnosed with acute pericarditis with pericardial effusion and started on ibuprofen and colchicine. With treatment the patient's discomfort gradually subsided and being at [facility] he was subsequently transferred to Hospital in [place]. This discharge process took approximately 30 minutes. Patient Condition at Discharge: Good Plan - Discharge Summary Discharge Rx Participant: No New Discharge Prescriptions: No Action predniSONE See Taper PO DAILY Apo-Feno Micro 200 mg PO DAILY sulfaSALAzine [Azulfidine] 1,000 mg PO BID Discharge Medication List Apo-Feno Micro 200 mg PO DAILY 02/10/18 [History] predniSONE See Taper PO DAILY 02/10/18 [History] sulfaSALAzine [Azulfidine] 1,000 mg PO BID 02/11/18 [History] Follow up Appointment(s)/Referral(s): Nonstaff,Physician [REFERRING] - 1-2 days Discharge Disposition: OTHER INSTITUTION NOT DEFINED
== END 2018-02-11 12:42 | disposition short-term general hospital (02) | DRG 287 ==
LOC: EC 02:17 → 6ICU 03:01
PROVIDERS: ADMIT Internal Medicine; ATTEND Internal Medicine
PROC: B2151ZZ Fluoroscopy of Left Heart using Low Osmolar Contrast (ICD-10-PCS; 2018-02-10)
PROC: B3101ZZ Fluoroscopy of Thoracic Aorta using Low Osmolar Contrast (ICD-10-PCS; 2018-02-10)
PROC: 4A023N7 Measurement of Cardiac Sampling and Pressure, Left Heart, Percutaneous Approach (ICD-10-PCS; principal; 2018-02-10 02:41)
PROC: B2111ZZ Fluoroscopy of Multiple Coronary Arteries using Low Osmolar Contrast (ICD-10-PCS; 2018-02-10 02:41)
DX: I30.9 Acute pericarditis, unspecified (principal); E66.9 Obesity, unspecified; Z68.31 Body mass index [BMI] 31.0-31.9, adult; D64.9 Anemia, unspecified; E78.00 Pure hypercholesterolemia, unspecified; E78.5 Hyperlipidemia, unspecified; I95.9 Hypotension, unspecified; R00.0 Tachycardia, unspecified; R79.1 Abnormal coagulation profile; R94.31 Abnormal electrocardiogram [ECG] [EKG]; R73.9 Hyperglycemia, unspecified; Z83.3 Family history of diabetes mellitus; Z71.3 Dietary counseling and surveillance; Z88.1 Allergy status to other antibiotic agents
CPT/HCPCS: 36415; 71045; 71275; 80048; 80053; 80061; 80306; 81001; 82550; 82553; 83036; 83735; 84100; 84484; 85025; 85379; 85610; 85730; 93306; 93458; 93567; 96374; 96375; 99291